=== PATIENT | female | born 1985 | race Caucasian/White ===

== ENCOUNTER → 2021-04-25 | Outpatient (CLI) | payer MEDICAID ==
--- NOTE | 2021-04-25 13:06 | US ---
EXAMINATION TYPE: US kidneys/renal and bladder DATE OF EXAM: 04/25/2021 COMPARISON: NONE CLINICAL HISTORY: R10.9 Right flank pain. Pt states right side ABD pain EXAM MEASUREMENTS: Right Kidney: 11.2 x 4.3 x 4.9 cm Left Kidney: 12.3 x 4.9 x 5.7 cm Right Kidney: Slight renal pelvic fullness, otherwise appeared wnl Left Kidney: Appeared wnl, lower pole gassed out Bladder: wnl Bilateral Jets seen: Yes Incidental finding simple right ovarian cyst= 5.0 x 3.9 x 4.7 cm There is no evidence for hydronephrosis at this point in time. No nephrolithiasis is seen. No ryan s are identified. The urinary bladder is anechoic. Bilateral ureteral jets are seen. IMPRESSION: 5 cm simple cyst noted within the pelvis likely associated with the right ovary, mild right renal pel viectasis
== END | disposition home or self-care (01) ==
LOC: RADUSWWP 12:33
PROVIDERS: ATTEND Urology
DX: N83.291 Other ovarian cyst, right side (principal); N28.89 Other specified disorders of kidney and ureter
CPT/HCPCS: 76770

== ENCOUNTER → 2021-10-06 | Outpatient (CLI) | payer MEDICAID ==
--- NOTE | 2021-10-06 14:59 | US ---
EXAMINATION TYPE: US pelvis complete transvag DATE OF EXAM: 10/06/2021 COMPARISON: NONE CLINICAL HISTORY: N83.209 Ovarian cyst N64.4 MASTODYNIA. pain hx of ovarian cyst. TECHNIQUE: Transvaginal (TV). Date of LMP: EXAM MEASUREMENTS: Uterus: 6.9 x 4.3 x 5.2 cm Endometrial Stripe: Not well visualized. Right Ovary: 2.9 x 1.8 x 2.5 cm Left Ovary: 4.6 x 2.5 x 3.9 cm 1. Uterus: Retroverted IUD visualized. 2. Endometrium: Not well visualized. 3. Right Ovary: wnl 4. Left Ovary: Cystic area seen 4.0 x 2.5 x 3.4 cm 5. Bilateral Adnexa: wnl 6. Posterior cul-de-sac: wnl IMPRESSION: 1. IUD is noted to be in place. 2. Left ovarian cyst may be functional in nature. Consider follow-up study in 6 weeks.
--- NOTE | 2021-10-06 15:50 | MM ---
Reason for Exam: Clinical finding. Baseline mammogram. Indicated Problems: Lump or thickening of both sides. Patient History: Menarche at age 13. First Full-Term at age 24. Premenopausal. Patient has history of breast feeding. Paternal aunt had breast cancer under age 50. Paternal aunt had breast cancer under age 50. Paternal grandmother had breast cancer under age 50. Risk Values: Bonnie 5 year model risk: 0.3%. NCI Lifetime model risk: 9.2%. Prior Study Comparison: Patient's first Mammogram. No prior studies available for comparison. Tissue Density: The breast tissue is heterogeneously dense. This may lower the sensitivity of mammography. Findings: Analyzed By CAD. No evidence for mass or suspicious cluster of microcalcifications. Overall Assessment: Negative, BI-RAD 1 Management: Diagnostic Breast Ultrasound of both breasts. A clinical breast exam by your physician is recommended on an annual basis and results should be correlated with mammographic findings. This exam should not preclude additional follow-up of suspicious palpable abnormalities. Results were given to the patient verbally at the time of exam. Electronically signed and approved by: Willie Daniel M.D. Radiologis
--- NOTE | 2021-10-06 16:05 | USB ---
Reason for Exam: Clinical finding. Patient History: Menarche at age 13. First Full-Term at age 24. Premenopausal. Patient has history of breast feeding. Paternal aunt had breast cancer under age 50. Paternal aunt had breast cancer under age 50. Paternal grandmother had breast cancer under age 50. Risk Values: Bonnie 5 year model risk: 0.3%. NCI Lifetime model risk: 9.2%. Technique: Method: Whole Breast Handheld. Findings: The whole breast of both breasts, the axilla of both breasts and the retroareolar of both breasts were scanned. There is a well-circumscribed hypoechoic lesion left breast at the 8:00 position measuring 9 x 7 mm which is felt to reflect a fibroadenoma. Six-month follow-up ultrasound is recommended. No additional lesions are seen of the left or the right breast.. Overall Assessment: Probably benign, BI-RAD 3 Management: Diagnostic Breast Ultrasound of the left breast in 6 months. A clinical breast exam by your physician is recommended on an annual basis and results should be correlated with mammographic findings. Electronically signed and approved by: Willie Daniel M.D. Radiologis
== END | disposition home or self-care (01) ==
LOC: RADUSWWP 12:44
PROVIDERS: ATTEND Obstetrics & Gynecology
DX: R92.8 Other abnormal and inconclusive findings on diagnostic imaging of breast (principal); N83.202 Unspecified ovarian cyst, left side
CPT/HCPCS: 76830; 76856; 77062; 77066

== ENCOUNTER → 2023-03-08 | Outpatient (CLI) | payer MEDICAID ==
--- NOTE | 2023-03-08 11:21 | USB ---
Reason for Exam: Additional evaluation requested from prior study. Patient History: Menarche at age 13. First Full-Term at age 24. Premenopausal. Patient has history of breast feeding. 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 10/12/2021, Benign US biopsy breast VAD LT on the left side. Paternal aunt had breast cancer under age 50. Paternal aunt had breast cancer under age 50. Paternal grandmother had breast cancer under age 50. Risk Values: Bonnie 5 year model risk: 0.5%. NCI Lifetime model risk: 11.3%. Technique: Method: Whole Breast Handheld. Prior Study Comparison: 10/06/2021 Bilateral MG 3D diag mammo w/cad [facility], [facility]. 10/12/2021 Left MG diagnostic mammo LT wo CAD., [facility]. Findings: The whole breast of both breasts, the axilla of both breasts and the retroareolar of both breasts were scanned. There is a 1.1 x 0.5 x 1.0 cm hypoechoic area within the left breast 7:00 position 4 cm from nipple. This correlates with a biopsy proven fibroadenoma. Clip is within this lesion present previously. No interval growth is evident. Remainder of the visualized bilateral breasts appear unremarkable without solid or cystic areas.. Screening mammography can be performed on annual basis. Overall Assessment: Benign, BI-RAD 2 Management: Screening Mammogram of both breasts in 1 day. A clinical breast exam by your physician is recommended on an annual basis and results should be correlated with mammographic findings. This exam should not preclude additional follow-up of suspicious palpable abnormalities. Results were given to the patient verbally at the time of exam. Electronically signed and approved by: Edmundo Gagnon D.O. Radiologis
--- NOTE | 2023-03-08 17:08 | US ---
EXAMINATION TYPE: US pelvis complete transvag DATE OF EXAM: 03/08/2023 COMPARISON: NONE CLINICAL INDICATION: Female, 37 years old with history of , N83.209 ovarian cyst; Hx of LEFT ovarian cyst. Patient is a A0. Patient currently has an IUD. No other pain or symptoms. TECHNIQUE: Transabdominal (TA). Transabdominal sonographic images of the pelvis were acquired. Date of LMP: 03/01/2023 EXAM MEASUREMENTS: Uterus: 8.9 x 4.1 x 4.8 cm Endometrial Stripe: 0.5 cm Right Ovary: 5.5 x 3.1x 5.1 cm Left Ovary: 2.5 x 2.0 x 2.5 cm Limited visualization due to overlying bowel gas 1. Uterus: Retroverted WNL. Patient's IUD appears to be in the correct location. There are small nab othian cysts within the cervix. 2. Endometrium: visualized portion wnl 3. Right Ovary: There is a 4.5 x 3.0 x 3.8cm anechoic area seen 4. Left Ovary: wnl as best visualized 5. Bilateral Adnexa: Obscured by overlying bowel gas 6. Posterior cul-de-sac: wnl IMPRESSION: 1. Limited study due to overlying bowel gas. 2. IUD present, appears to be in the expected location. 3. Visualized endometrium appears within normal limits. 4. Right ovarian 4.5 x 3 x 3.8 cm simple cyst. 5. Left ovary appears within normal limits as best visualized.
== END | disposition home or self-care (01) ==
LOC: RADUSWWP 09:47
PROVIDERS: ATTEND Obstetrics & Gynecology
DX: N83.201 Unspecified ovarian cyst, right side (principal); N83.202 Unspecified ovarian cyst, left side; R92.2 Inconclusive mammogram; Z80.3 Family history of malignant neoplasm of breast
CPT/HCPCS: 76830; 76856